=== PATIENT | female | born 1995 | race Caucasian/White ===

== ENCOUNTER 2019-01-18 20:14 | Emergency (ER) | payer OTHER ==
--- NOTE | 2019-01-18 21:57 | ER Document Report ---
ED Medical Screen (RME) - General Chief Complaint: Medication Refill Stated Complaint: MED REFILL Time Seen by Provider: 01/18/19 21:32 Notes: Patient is a 23-year-old female with a history of Asperger's, ADD, OCD and anxiety who presents to the emergency department with her family member with a chief complaint of anxiety. Family member states that she has been under a lot of stress as she is trying to obtain her green card. States that the patient is from [facility]. Patient does go to see [facility] for her mental health. He states that she has recently ran out of her for medications but he cannot remember the names of these medications. He states that the anxiety attacks have increased over the past 2 to 3 weeks and have been daily. Patient did have a recent medication change with the addition of Abilify a few weeks ago. Family member states she has been hitting her head on the wall multiple times per day during her anxiety attacks. Patient denies SI or HI. Patient is pacing back and forth in the triage room and appears anxious. TRAVEL OUTSIDE OF THE [place] IN LAST 30 DAYS: No - Related Data Allergies/Adverse Reactions: pineapple Allergy (Verified 01/18/19 21:30) Physical Exam - Vital signs Vitals: Temp Pulse Resp BP Pulse Ox 98.1 F 75 15 126/54 H 95 01/18/19 20:21 01/18/19 20:21 01/18/19 20:21 01/18/19 20:21 01/18/19 20:21 - Respiratory Respiratory status: No respiratory distress Chest status: Nontender Breath sounds: Normal Chest palpation: Normal Course - Re-evaluation Re-evalutation: 01/18/19 21:57 I have greeted and performed a rapid initial assessment of this patient. A comprehensive ED assessment and evaluation of the patient, analysis of test results and completion of the medical decision making process will be conducted by additional ED providers. - Vital Signs Vital signs: Temp Pulse Resp BP Pulse Ox 98.1 F 75 15 126/54 H 95 01/18/19 20:21 01/18/19 20:21 01/18/19 20:21 01/18/19 20:21 01/18/19 20:21
[2019-01-18 23:01] LABS: ABSOLUTE EOSINOPHILS # (AUTO) 0.2 10^3/uL (0.0-0.6); ABSOLUTE MONOCYTES (AUTO) 0.8 10^3/uL (0.1-1.4); ABSOLUTE NEUT (AUTO) 6.6 10^3/uL (1.7-8.2); BASOPHILS % (AUTO) 0.2 % (0-2); EOSINOPHILS % (AUTO) 1.4 % (0-6); HEMATOCRIT 40.7 % (36.0-47.0); HEMOGLOBIN 13.5 g/dL (12.0-15.5); LYMPHOCYTES % (AUTO) 28.3 % (13-45); MEAN CORPUSCULAR HEMOGLOBIN 25.6 pg (27.0-33.4); MEAN CORPUSCULAR HGB CONC 33.1 g/dL (32.0-36.0); MEAN CORPUSCULAR VOLUME 77 fl (80-97); MONOCYTES % (AUTO) 7.5 % (3-13); PLATELET COUNT 231 10^3/uL (150-450); RED BLOOD COUNT 5.25 10^6/uL (3.72-5.28); RED CELL DISTRIBUTION WIDTH 14.4 % (11.5-14.0); SEGMENTED NEUTROPHILS % (AUTO) 62.6 % (42-78); TOTAL CELLS COUNTED % (AUTO) 100 %; WHITE BLOOD COUNT 10.6 10^3/uL (4.0-10.5)
--- NOTE | 2019-01-18 23:12 | EKG REPORT ---
SEVERITY:- NORMAL ECG - SINUS RHYTHM : Confirmed by: Amparo Stevens MD 18-Jan-2019 23:12:11
[2019-01-18 23:20] LABS: ALBUMIN 4.2 g/dL (3.5-5.0); ALKALINE PHOSPHATASE 89 U/L (38-126); ANION GAP 8 (5-19); ASPARTATE AMINO TRANSFERASE 32 U/L (14-36); BILIRUBIN,DIRECT 0.2 mg/dL (0.0-0.4); BILIRUBIN,TOTAL 0.6 mg/dL (0.2-1.3); BLOOD UREA NITROGEN 14 mg/dL (7-20); CALCIUM 9.6 mg/dL (8.4-10.2); CARBON DIOXIDE 29 mmol/L (22-30); CHLORIDE 102 mmol/L (98-107); GLUCOSE 81 mg/dL (75-110); POTASSIUM 3.6 mmol/L (3.6-5.0)
[2019-01-18 23:21] LABS: ACETAMINOPHEN < 10 ug/mL (10-30); ALCOHOL < 10 mg/dL (NONE DETECTED); SALICYLATE < 1.0 mg/dL (2.0-20.0)
--- NOTE | 2019-01-18 23:47 | ER Document Report ---
ED General - General Chief Complaint: Medication Refill Stated Complaint: MED REFILL Time Seen by Provider: 01/18/19 21:32 Notes: 23-year-old female emergency department for evaluation of psychiatric issues. Patient reportedly has long-standing history of mental health disorders. Has been taking Celexa and Abilify. States that this is not helping. Her states that she has become more and more agitated at home. Hitting her head a gainst the wall on occasion. Followed by Dr. Duran with psychiatry. Patient states that she thinks she needs a sedative and that will make everything better. Patient has been admitted to psychiatric hospitals in [facility]. Patient is of [place] descent. Denies any suicidal ideation, homicidal ideation, hallucinations or other issues at this time. And also states that she might of stepped on a piece of glass and wants to look at the bottom of her right foot. TRAVEL OUTSIDE OF THE [place] IN LAST 30 DAYS: No - HPI Associated symptoms: None - Related Data Allergies/Adverse Reactions: pineapple Allergy (Verified 01/18/19 21:30) Past Medical History - General Information source: Patient - Social History Smoking Status: Never Smoker Frequency of alcohol use: Occasional Drug Abuse: None Lives with: Spouse/Significant other Family History: Reviewed & Not Pertinent Patient has suicidal ideation: No Patient has homicidal ideation: No Renal/ Medical History: Denies: Hx Peritoneal Dialysis Psychiatric Medical History: Reports: Hx Anxiety, Hx Bipolar Disorder Review of Systems - Review of Systems Notes: Constitutional: denies: Chills, Diaphoresis, Fever, Malaise, Weakness EENT: denies: Eye discharge, Blurred vision, Tearing, Double vision, Nose congestion, Nose discharge, Throat swelling, Mouth pain Cardiovascular: denies: Palpitations, Heart racing, Orthopnea, Dyspnea, Chest pain Respiratory: denies: Cough, Hurts to breathe, Wheezing, Shortness of breath Gastrointestinal: denies: Abdominal pain, Diarrhea, Nausea, Vomiting, Black stools, bright red blood in stool Genitourinary: denies: Burning, Dysuria, Discharge, Frequency, Flank pain, Hematuria Musculoskeletal: denies: Joint pain, Joint swelling, Muscle pain, Muscle stiffness, back pain Hematologic/Lymphatic: denies: Anemia, Easy bleeding, Easy bruising, Blood clots Neurological/Psychological: Agitation, irritation, anxiety Skin: No lesions, no masses, no skin breakdown, no abscesses Physical Exam - Vital signs Vitals: Temp Pulse Resp BP Pulse Ox 98.1 F 75 15 126/54 H 95 01/18/19 20:21 01/18/19 20:21 01/18/19 20:21 01/18/19 20:21 01/18/19 20:21 Interpretation: Normal - General General appearance: Appears well, Alert - HEENT Head: Normocephalic, Atraumatic Eyes: Normal Pupils: PERRL - Respiratory Respiratory status: No respiratory distress Chest status: Nontender Breath sounds: Normal Chest palpation: Normal - Cardiovascular Rhythm: Regular Heart sounds: Normal auscultation Murmur: No - Abdominal Inspection: Normal Distension: No distension Bowel sounds: Normal Tenderness: Nontender Organomegaly: No organomegaly - Back Back: Normal, Nontender - Extremities General upper extremity: Normal inspection, Nontender, Normal color, Normal ROM, Normal temperature General lower extremity: Normal inspection, Nontender, Normal color, Normal ROM, Normal temperature, Normal weight bearing. No: Norma's sign - Neurological Neuro grossly intact: Yes Cognition: Normal Orientation: AAOx4 Chelsey Coma Scale Eye Opening: Spontaneous Chelsey Coma Scale Verbal: Oriented Chelsey Coma Scale Motor: Obeys Commands Chelsey Coma Scale Total: 15 Speech: Normal Motor strength normal: LUE, RUE, LLE, RLE Sensory: Normal - Psychological Associated symptoms: Agitated, Other - Patient hit head against the wall a couple of times during the interview - Skin Skin Temperature: Warm Skin Moisture: Dry Skin Color: Normal Course - Re-evaluation Re-evalutation: 01/19/19 02:19 Laboratory 01/18/19 01/18/19 01/18/19 22:46 22:46 22:46 WBC 10.6 H RBC 5.25 Hgb 13.5 Hct 40.7 MCV 77 L MCH 25.6 L MCHC 33.1 RDW 14.4 H Plt Count 231 Seg Neutrophils % 62.6 Lymphocytes % 28.3 Monocytes % 7.5 Eosinophils % 1.4 Basophils % 0.2 Absolute Neutrophils 6.6 Absolute Lymphocytes 3.0 Absolute Monocytes 0.8 Absolute Eosinophils 0.2 Absolute Basophils 0.0 Sodium 138.8 Potassium 3.6 Chloride 102 Carbon Dioxide 29 Anion Gap 8 BUN 14 Creatinine 0.66 Est GFR ( Amer) > 60 Est GFR (Non-Af Amer) > 60 Glucose 81 Calcium 9.6 Total Bilirubin 0.6 Direct Bilirubin 0.2 Neonat Total Bilirubin Not Reportable Neonat Direct Bilirubin Not Reportable Neonat Indirect Bili Not Reportable AST 32 ALT 37 Alkaline Phosphatase 89 Total Protein 7.0 Albumin 4.2 Beta HCG, Quant < 2.39 Total Beta HCG NEGATIVE Salicylates < 1.0 L Acetaminophen < 10 L Serum Alcohol < 10 01/19/19 02:19 states that she really needs to be seen by mental health. He is a un comfortable taking her home. She seems to be resting comfortably now after getting some hydroxyzine and Xanax. I will have patient seen by mental health in the morning. - Vital Signs Vital signs: Temp Pulse Resp BP Pulse Ox 98.1 F 75 15 126/54 H 95 01/18/19 20:21 01/18/19 20:21 01/18/19 20:21 01/18/19 20:21 01/18/19 20:21 - Laboratory Result Diagrams: 01/18/19 22:46 01/18/19 22:46 Laboratory results interpreted by me: 01/18/19 01/18/19 22:46 22:46 WBC 10.6 H MCV 77 L MCH 25.6 L RDW 14.4 H Salicylates < 1.0 L Acetaminophen < 10 L Discharge - Discharge Clinical Impression: Behavioral change Condition: Good Disposition: HOME, SELF-CARE
[2019-01-18] MEDS ORDERED: ESCITALOPRAM OXALATE 10 MG TABLET PO ONE (23:53)
[2019-01-18] MEDS ORDERED: BENZTROPINE MESYLATE 1 MG TABLET PO ONE (23:54)
[2019-01-18] MEDS ORDERED: ARIPIPRAZOLE 5 MG TABLET PO ONE (23:54)
[2019-01-19] MEDS ORDERED: HYDROXYZINE HCL 10 MG TABLET PO ONE (00:03)
[2019-01-19] MEDS ORDERED: ALPRAZOLAM 0.25 MG TABLET PO ONE (00:04)
[2019-01-19 04:20] LABS: APPEARANCE,URINE SLIGHTLY-CLOUDY; BILIRUBIN,URINE NEGATIVE (NEGATIVE); COLOR,URINE YELLOW; GLUCOSE, URINE NEGATIVE (NEGATIVE); KETONES,URINE TRACE mg/dL (NEGATIVE); LEUKOCYTE ESTERASE,URINE NEGATIVE (NEGATIVE); NITRITE,URINE NEGATIVE (NEGATIVE); PROTEIN,URINE NEGATIVE (NEGATIVE); URINE SPECIFIC GRAVITY 1.013; UROBILINOGEN,URINE NEGATIVE mg/dL (<2.0)
[2019-01-19 04:38] LABS: URINE AMPHETAMINES SCREEN NEGATIVE; URINE BARBITURATES SCREEN NEGATIVE; URINE BENZODIAZEPINES SCREEN NEGATIVE; URINE COCAINE SCREEN NEGATIVE; URINE MARIJUANA (THC) SCREEN NEGATIVE; URINE METHADONE SCREEN NEGATIVE; URINE PHENCYCLIDINE SCREEN NEGATIVE
--- NOTE | 2019-01-19 11:42 | ER Document Report ---
Doctor's Note Notes: 01/19/19 11:42 Rounds: Chart reviewed and patient interviewed. Patient is here for evaluation related to behavioral issues. She also is out of medications and has been switched to medications that are not as helpful as her usual medicines. Vital signs are essentially normal. Lab studies were all normal. Patient appears to be medically stable for transfer or discharge. Sandra Mina MD
[2019-01-19] MEDS ORDERED: BUSPIRONE HCL 10 MG TABLET PO ONE (11:59)
[2019-01-19 12:10] VITALS: BP 122/64
== END 2019-01-19 12:18 | disposition home or self-care (01) ==
LOC: ER 20:14
DX: F32.9 Major depressive disorder, single episode, unspecified (principal); F41.9 Anxiety disorder, unspecified; Z79.899 Other long term (current) drug therapy; R45.1 Restlessness and agitation; Z91.018 Allergy to other foods
CPT/HCPCS: 36415; 80053; 80307; 81001; 84702; 85025; 93005; 93010; 99283

== ENCOUNTER 2019-01-23 12:58 | Emergency (ER) | payer OTHER ==
--- NOTE | 2019-01-23 13:16 | ER Document Report ---
HPI - HPI Patient complains to provider of: right foot pain Time Seen by Provider: 01/23/19 13:05 Onset: Last week Onset/Duration: Persistent Pain Level: 1 Context: This 23-year-old female presents from [place] with complaints of right foot pain. She reports that she stepped on glass approximately 1 week ago. She reports a glass was clear. Believes her tetanus is up-to-date. No other c omplaints such as fever and vomiting. Reports pain with movement walking touch. Patient also complains of right knee pain. Reports she injured her right knee at a different time approximately a week ago. Ecchymosis with healing scab noted to the right kneecap. Patient offered Motrin but declined. Associated Symptoms: None Exacerbated by: Movement, Walking Relieved by: Denies Similar symptoms previously: No Recently seen / treated by doctor: No - REPRODUCTIVE Reproductive: DENIES: : Past Medical History - General Information source: Patient - Social History Smoking Status: Unknown if Ever Smoked Cigarette use (# per day): No Frequency of alcohol use: None Drug Abuse: None Lives with: Other - ragini mohan Family History: Reviewed & Not Pertinent Patient has suicidal ideation: No Patient has homicidal ideation: No Renal/ Medical History: Denies: Hx Peritoneal Dialysis Psychiatric Medical History: Reports: Hx Anxiety, Hx Bipolar Disorder, Hx Schizophrenia Surgical Hx: Negative - Immunizations Immunizations up to date: Yes Vertical Provider Document - CONSTITUTIONAL Agree With Documented VS: Yes Exam Limitations: No Limitations General Appearance: WD/WN, No Apparent Distress - INFECTION CONTROL TRAVEL OUTSIDE OF THE [place] IN LAST 30 DAYS: No - HEENT HEENT: Atraumatic, Normocephalic - NECK Neck: Supple - RESPIRATORY Respiratory: No Respiratory Distress - CARDIOVASCULAR Cardiovascular: Regular Rate - MUSCULOSKELETAL/EXTREMETIES Musculoskeletal/Extremeties: MAEW, FROM, Tender - right plantar midsole of foot ttp, no warmth no pustule no erythema, good pedal pulse good cap refill right knee ttp, ecchymosis, healing wound noted, no erythema, no warmth. pt ambulating without problems - NEURO Level of Consciousness: Awake, Alert, Appropriate Motor/Sensory: No Motor Deficit - DERM Integumentary: Warm, Dry Adult Front & Back Diagram: 1 - right knee pain, ttp, +ecchymosis, healing wound noted, no drainage, no warmth, no erythema Course - Re-evaluation Re-evalutation: 01/23/19 14:37 This 23-year-old female presents emergency department with glass in her foot. She reports that happened over a week ago. Patient complains of pain. No erythema swelling or warmth around the area. Extremity Ultrasound 01/23/19 13:10 IMPRESSION: Foreign body compatible with the history of glass. Patient instructed on the results of the ultrasound. Instructed to follow-up with dye colorist formulator or surgeon for removal of glass. Monitor site for signs of infection such as redness swelling warmth take Motrin for the pain. - Vital Signs Vital signs: Temp Pulse Resp BP Pulse Ox 98.1 F 88 18 109/64 100 01/23/19 13:02 01/23/19 13:02 01/23/19 13:02 01/23/19 13:02 01/23/19 13:02 - Diagnostic Test Radiology reviewed: Image reviewed, Reports reviewed Discharge - Discharge Clinical Impression: Right foot pain, retained foreign body right foot Condition: Stable Disposition: HOME, SELF-CARE Instructions: Use of [id number] Ibuprofen ([facility]) Additional Instructions: *You have been treated for right foot pain, foreign body right foot *The Ultrasound did show a small piece of a foreign body in your foot *Monitor the site for signs of infection such as increasing pain, redness, swelling, warmth *keep your foot clean *Follow up with a dye colorist formulator or surgeon within one week for evaluation and removal of object as indicated *Return to ED for signs of infection, worsening condition, changes, needs [facility]errals: [facility] [Provider Group[facility] - [facility] - Follow up as needed
--- NOTE | 2019-01-23 14:25 | RADIOLOGY REPORT (SQ) ---
EXAM DESCRIPTION: U/S EXTREMITY NONVASCULAR LTD COMPLETED DATE/TIME: 01/23/2019 2:16 pm REASON FOR STUDY: right foot ? glass COMPARISON: None. TECHNIQUE: Dynamic and static grayscale images acquired of the localized site of clinical concern an d recorded on PACS. Additional selected color Doppler and spectral images recorded. SITE OF CONCERN: Right foot. LIMITATIONS: None. FINDINGS: SKIN AND SUBCUTANEOUS TISSUES: There is a small echogenic focus in the area of concern clement suring 1.2 x 1.3 x 1.1 mm. DEEP SOFT TISSUES/MUSCLES: No masses. No fluid collections. No edema. VASCULAR: No increased or decreased vascularity. No occlusions. OTHER: No other significant finding. IMPRESSION: Foreign body compatible with the history of glass. TECHNICAL DOCUMENTATION: JOB ID: [id number] [employer]- All Rights Reserved Reading location - IP/workstation name: [email or web address]
[2019-01-23 15:02] VITALS: BP 129/84
== END 2019-01-23 15:02 | disposition home or self-care (01) ==
LOC: ER 12:58
DX: M79.5 Residual foreign body in soft tissue (principal); M79.671 Pain in right foot; W25.XXXA Contact with sharp glass, initial encounter; S80.01XA Contusion of right knee, initial encounter; M25.561 Pain in right knee; X58.XXXA Exposure to other specified factors, initial encounter
CPT/HCPCS: 76882; 99283

== ENCOUNTER 2019-02-03 14:06 | Emergency (ER) | payer OTHER ==
--- NOTE | 2019-02-03 15:05 | ER Document Report ---
ED Medical Screen (RME) - General Chief Complaint: Abnormal Lab Results Stated Complaint: ABNORMAL LABS Time Seen by Provider: 02/03/19 14:53 Notes: Patient is a 23-year-old female with a history of Asperger's, ADD, OCD and anxiety presents to the emergency department with a chief complaint of abnormal labs. Patient's brother states he was picking her up from [place] today and was told that she had an elevated potassium level. They were told to come to the emergency department. Patient was recently started on lithium within the past week and restarted on Zyprexa 2 weeks ago. Patient has no complaints. Patient denies chest pain, palpitations, shortness of breath, nausea, vomiting or diarrhea. TRAVEL OUTSIDE OF THE [place] IN LAST 30 DAYS: No - Related Data Allergies/Adverse Reactions: pineapple Allergy (Verified 01/23/19 13:02) Past Medical History - Social History Chew tobacco use (# tins/day): No Frequency of alcohol use: Social Drug Abuse: None Renal/ Medical History: Denies: Hx Peritoneal Dialysis Psychiatric Medical History: Reports: Hx Anxiety, Hx Bipolar Disorder, Hx Schizophrenia - Immunizations Immunizations up to date: Yes Physical Exam - Vital signs Vitals: Temp Pulse Resp BP Pulse Ox 98.3 F 84 16 114/67 96 02/03/19 14:15 02/03/19 14:15 02/03/19 14:15 02/03/19 14:15 02/03/19 14:15 - Cardiovascular Rhythm: Regular Heart sounds: Normal auscultation, S1 appreciated, S2 appreciated Course - Re-evaluation Re-evalutation: 02/03/19 15:04 I have greeted and performed a rapid initial assessment of this patient. A comprehensive ED assessment and evaluation of the patient, analysis of test results and completion of the medical decision making process will be conducted by additional ED providers. - Vital Signs Vital signs: Temp Pulse Resp BP Pulse Ox 98.3 F 84 16 114/67 96 02/03/19 14:15 02/03/19 14:15 02/03/19 14:15 02/03/19 14:15 02/03/19 14:15
[2019-02-03 15:56] LABS: ABSOLUTE EOSINOPHILS # (AUTO) 0.3 10^3/uL (0.0-0.6); ABSOLUTE LYMPHOCYTES (AUTO) 2.7 10^3/uL (0.5-4.7); ABSOLUTE MONOCYTES (AUTO) 0.9 10^3/uL (0.1-1.4); ABSOLUTE NEUT (AUTO) 9.6 10^3/uL (1.7-8.2); BASOPHILS % (AUTO) 0.1 % (0-2); EOSINOPHILS % (AUTO) 2.3 % (0-6); HEMATOCRIT 40.1 % (36.0-47.0); LYMPHOCYTES % (AUTO) 19.6 % (13-45); MEAN CORPUSCULAR HEMOGLOBIN 25.2 pg (27.0-33.4); MEAN CORPUSCULAR HGB CONC 32.5 g/dL (32.0-36.0); MEAN CORPUSCULAR VOLUME 78 fl (80-97); PLATELET COUNT 285 10^3/uL (150-450); RED BLOOD COUNT 5.17 10^6/uL (3.72-5.28); RED CELL DISTRIBUTION WIDTH 14.5 % (11.5-14.0); TOTAL CELLS COUNTED % (AUTO) 100 %; WHITE BLOOD COUNT 13.6 10^3/uL (4.0-10.5)
[2019-02-03 16:03] LABS: ALBUMIN 4.2 g/dL (3.5-5.0); ALKALINE PHOSPHATASE 110 U/L (38-126); ANION GAP 10 (5-19); ASPARTATE AMINO TRANSFERASE 67 U/L (14-36); BILIRUBIN,DIRECT 0.2 mg/dL (0.0-0.4); BILIRUBIN,TOTAL 0.3 mg/dL (0.2-1.3); BLOOD UREA NITROGEN 14 mg/dL (7-20); CALCIUM 9.3 mg/dL (8.4-10.2); CARBON DIOXIDE 28 mmol/L (22-30); CHLORIDE 100 mmol/L (98-107); GLUCOSE 83 mg/dL (75-110); POTASSIUM 4.4 mmol/L (3.6-5.0); TOTAL PROTEIN 7.2 g/dL (6.3-8.2)
--- NOTE | 2019-02-03 16:29 | ER Document Report ---
ED General - General Chief Complaint: Abnormal Lab Results Stated Complaint: ABNORMAL LABS Time Seen by Provider: 02/03/19 14:53 TRAVEL OUTSIDE OF THE [place].S[place] IN LAST 30 DAYS: No - HPI Notes: Patient is a 23-year-old female with an extensive mental health history who presents to the emergency department for evaluation of abnormal labs. Brother is picking her up from [place]. They were told at that time that she had an elevated potassium. The patient denies any weakness. No palpitations. No dizziness. She is not on any potassium supplements. She just started on lithium. - Related Data Allergies/Adverse Reactions: pineapple Allergy (Verified 01/23/19 13:02) Past Medical History - General Information source: Patient, Relative - Social History Smoking Status: Never Smoker Chew tobacco use (# tins/day): No Frequency of alcohol use: Social Drug Abuse: None Family History: Reviewed & Not Pertinent Patient has suicidal ideation: No Patient has homicidal ideation: No Renal/ Medical History: Denies: Hx Peritoneal Dialysis Psychiatric Medical History: Reports: Hx Anxiety, Hx Bipolar Disorder, Hx Schizophrenia - Immunizations Immunizations up to date: Yes Review of Systems - Review of Systems Constitutional: No symptoms reported EENT: No symptoms reported Cardiovascular: No symptoms reported Respiratory: No symptoms reported Gastrointestinal: No symptoms reported Genitourinary: No symptoms reported Musculoskeletal: No symptoms reported Skin: No symptoms reported Neurological/Psychological: No symptoms reported Physical Exam - Vital signs Vitals: Temp Pulse Resp BP Pulse Ox 98.3 F 84 16 114/67 96 02/03/19 14:15 02/03/19 14:15 02/03/19 14:15 02/03/19 14:15 02/03/19 14:15 - Notes Notes: This is a 23-year-old female appears stated age in no acute distress. She has diminished eye contact and a very flat affect, but is calm and cooperative with examiner. Vital signs reviewed, please refer to chart. Head is normocephalic, atraumatic. Pupils equal round, reactive to light. Neck is supple without meningismus. Heart is regular rate and rhythm. Lungs are clear to auscultation bilaterally. Abdomen is soft, nontender, normoactive bowel sounds throughout. Extremities without cyanosis, clubbing. Posterior calves are nontender. Peripheral pulses are equal. Skin is warm and dry. Patient is awake, alert, neurological exam is nonfocal. Course - Re-evaluation Re-evalutation: 02/03/19 16:27 Laboratory investigations were obtained on this patient who had reportedly elevated . Her potassium here was normal. Patient and brother were reassured. At this point she has no EKG abnormalities or other concerns. Again discharge at home. She is to continue her medications, follow-up with primary care, return to the ED with worsening or concerning symptoms of any sort. - Vital Signs Vital signs: Temp Pulse Resp BP Pulse Ox 98.3 F 84 16 114/67 96 02/03/19 14:15 02/03/19 14:15 02/03/19 14:15 02/03/19 14:15 02/03/19 14:15 - Laboratory Result Diagrams: 02/03/19 15:21 02/03/19 15:21 Laboratory results interpreted by me: 02/03/19 02/03/19 15:21 15:21 WBC 13.6 H MCV 78 L MCH 25.2 L RDW 14.5 H Absolute Neutrophils 9.6 H AST 67 H - EKG Interpretation by Me Additional EKG results interpreted by me: 02/03/19 16:29 Sinus mechanism with a rate of 76 bpm. Normal axis and intervals, no acute ST changes concerning for ischemia or infarction Discharge - Discharge Clinical Impression: Hyperkalemia, ruled out Condition: Stable Disposition: HOME, SELF-CARE Additional Instructions: Labs drawn today revealed there was in fact no elevated potassium. Continue y our home medications as prescribed. Follow-up with primary care this week. Return to the emergency department with worsening or new concerning symptoms of any sort.
[2019-02-03 16:39] VITALS: BP 104/66
--- NOTE | 2019-02-03 19:59 | EKG REPORT ---
SEVERITY:- NORMAL ECG - SINUS RHYTHM : Confirmed by: Amparo Stevens MD 03-Feb-2019 19:58:39
== END 2019-02-03 16:39 | disposition home or self-care (01) ==
LOC: ER 14:06
DX: Z71.1 Person with feared health complaint in whom no diagnosis is made (principal); F31.9 Bipolar disorder, unspecified
CPT/HCPCS: 36415; 80053; 83735; 85025; 93005; 93010; 99285

== ENCOUNTER 2020-04-04 15:04 | Emergency (ER) | payer OTHER ==
[2020-04-04 15:22] VITALS: BP 116/82
[2020-04-04] MEDS ORDERED: ACETAMINOPHEN 325 MG TABLET PO ONE (15:59)
--- NOTE | 2020-04-04 16:00 | ER Document Report ---
ED Extremity Problem, Lower - General Chief Complaint: Fall Injury Stated Complaint: FALL / FOOT PAIN Time Seen by Provider: 04/04/20 15:53 Primary Care Provider: KARTHIKEYAN HENRY DO [ACTIVE STAFF] - Follow up tomorrow Mode of Arrival: Wheelchair Information source: Patient, Relative Notes: 24-year-old female presented to ED for complaint of pain to her foot. She stat es this morning she fell asleep on the couch and when she woke up her foot was numb and asleep. She states she went to stand up and fell. She states this happened about 730 this morning. She states that she took ibuprofen 800 mg at 8:00 and 12:00. She states the pain was a level 2 at the time of exam. Foot was very swollen and tender to palpation. She does have a history of anxiety autism. Constitutional: Negative for fever. HENT: Negative for sore throat. Eyes: Negative for visual changes. Cardiovascular: Negative for chest pain. Respiratory: Negative for shortness of breath. Gastrointestinal: Negative for abdominal pain, vomiting or diarrhea. Genitourinary: Negative for dysuria. Musculoskeletal: Pain and swelling to right foot after falling this morning. States it is extremely painful to bear weight. States she has some numbness to her foot also Skin: Negative for rash. Neurological: Negative for headaches, weakness or numbness. 10 point ROS negative except as marked above and in HPI. VITAL SIGNS: Within normal limits. GENERAL: No acute distress, non-toxic appearance. HEAD: Normal with no signs of head trauma. EYES: PERRLA, EOMI, conjunctiva normal, no discharge. EARS: Hearing grossly intact. NOSE: Normal. THROAT: Oropharynx is normal. NECK: Normal range of motion, no tenderness, supple, no lymphadenopathy, No adenopathy, no JVD. CHEST: Clear breath sounds bilaterally. No wheezes, rales, or rhonchi. CARDIAC: Regular rate and rhythm. S1 and S2, without murmurs, gallops, or rubs. VASCULAR: No Edema. Peripheral pulses normal and equal in all extremities. ABDOMEN: Normal and soft with no tenderness, no masses or pulsatile masses. GASTROINTESTINAL: Bowel sounds normal GENITOURINARY: Normal, No tenderness LYMPATHTIC: No lymphadenopathy noted. MUSCULOSKELETAL: Edema ecchymosis and pain to the right top of the foot. NEUROLOGICAL: Alert and oriented x 3. No focal sensory or strength deficits. Speech normal. Follows commands appropriately. PSYCHIATRIC: Normal Affect, judgement and mood. SKIN: Ecchymosis swelling to the top of the right foot TRAVEL OUTSIDE OF THE [place] IN LAST 30 DAYS: No - HPI Patient complains to provider of: Injury, Pain, Swelling Location: Foot Occurred: This morning Where: Home, Indoors Onset/Duration: Sudden, Persistent, Better Quality of pain: Achy Severity: Moderate Pain Level: 2 Context: Fell Recent injury: Yes Associated symptoms: Painful ambulation Exacerbated by: Hanging down, Movement, Walking Relieved by: Elevation, Ice, Rest - Related Data Allergies/Adverse Reactions: pineapple Allergy (Verified 01/23/19 13:02) Past Medical History - General Information source: Patient - Social History Smoking Status: Never Smoker Frequency of alcohol use: None Drug Abuse: None Lives with: Family Family History: Reviewed & Not Pertinent Patient has suicidal ideation: No Patient has homicidal ideation: No - Past Medical History Cardiac Medical History: Reports: None Pulmonary Medical History: Reports: None EENT Medical History: Reports: None Neurological Medical History: Reports: None Endocrine Medical History: Reports: None Renal/ Medical History: Reports: None Malignancy Medical History: Reports: None GI Medical History: Reports: None Musculoskeletal Medical History: Reports Hx Musculoskeletal Trauma Skin Medical History: Reports None Psychiatric Medical History: Reports: Hx Anxiety, Hx Bipolar Disorder, Hx Schizophrenia, Other - Autism Traumatic Medical History: Reports: Hx Fractures Infectious Medical History: Reports: None Surgical Hx: Negative Past Surgical History: Reports: None - Immunizations Immunizations up to date: Yes Physical Exam - Vital signs Vitals: Temp Pulse Resp BP Pulse Ox 98.3 F 94 16 116/82 98 04/04/20 15:22 04/04/20 15:22 04/04/20 15:22 04/04/20 15:22 04/04/20 15:22 Course - Re-evaluation Re-evalutation: 04/04/20 17:03 Displaced transversely oriented fracture of the base of the fifth metatarsal on the right foot. Patient has been instructed on elevation ice no weightbearing in his posterior ankle splint has been placed. Patient has been instructed to call orthopedics today or in the morning to get a follow-up appointment as soon as possible. Patient and both verbalized understanding and agreement with treatment plan. - Vital Signs Vital signs: Temp Pulse Resp BP Pulse Ox 98.3 F 94 16 116/82 98 04/04/20 15:22 04/04/20 15:22 04/04/20 15:22 04/04/20 15:22 04/04/20 15:22 - Diagnostic Test Radiology reviewed: Image reviewed, Reports reviewed Procedures - Immobilization Right Foot Time completed: 17:03 Immobilizer type: Posterior ankle Performed by: PCT Post-Proc Neuro Vasc Exam: Normal Alignment checked and good: Yes Discharge - Discharge Clinical Impression: Nondisplaced fracture of fifth right metatarsal bone Qualifiers: Encounter type: initial encounter Fracture type: closed Qualified Code(s): S92.354A - Nondisplaced fracture of fifth metatarsal bone, right foot, initial encounter for closed fracture Condition: Stable Disposition: HOME, SELF-CARE Additional Instructions: Foot Fracture You have a fracture in one of the small bones of the foot. Some foot fractures are very serious, while others are no more serious than a sprain. This fracture should heal well, but requires protection for proper healing. Initially, you should elevate and ice pack the foot, and bear no weight on it. Usually, a cast or a walking boot will be required. Some milder foot fractures can be managed with temporary rest, then a firm shoe. Your physician has determined the seriousness of your foot fracture and has outlined the treatment plan for you. You should follow up as instructed to insure that the fracture heals without complications. Call the doctor or return at once if pain or swelling becomes severe, if a re-injury occurs, or if any part of the foot becomes numb. Splint Pending Casting Your injury can't be casted until the swelling has subsided. Therefore, a temporary splint has been placed to protect the injury. Full use of an injured area is not possible in a splint. You should follow the doctor's instructions concerning rest, ice, and elevation of the injury. Never do anything which causes pain under the splint. Keep the splint on ALL THE TIME until you return for casting. If there is unexpected severe pain, or numbness, discoloration, or swelling beyond the splint, you should return at once. USE OF CRUTCHES: The doctor has recommended that you not bear weight at this time. You will need to use crutches. Adjust the crutches so the tops come to about two inches under the armpit while you are standing upright. Use your hands -- not your armpits -- to support your weight. To get into a chair, support yourself with one crutch on the injured side. Hold the chair with the other hand, then lower yourself while putting all your weight on the good leg. Going up stairs is `good leg up, step up, then bring up crutches and bad leg.' Down stairs is `bad leg and crutches down, then bring good leg down.' If you develop numbness or swelling in an arm or hand, you are using the crutches incorrectly. Return if you are having any problems with the crutches. Do not bear any weight on this foot until you follow-up with orthopedics and they give you further instructions. It is very important that you call orthopedics right away and schedule follow-up. ICE & ELEVATION: Apply ice packs frequently against the painful area. Many different schedules are recommended, such as "20 minutes on, 20 minutes off" or "one hour ice, two hours rest." If you need to work, you may need to go longer between ice treatments. You should plan to have the area ice packed AT LEAST one-fourth of the time. The ice should be applied over the wrap, tape, or splint, or over a layer of cloth -- not directly against the skin. Some ice bags have a built-in cloth and can be put directly on the skin. Your injured part should be elevated as much as possible over the next 48 hours. Try to keep the injury above the level of the heart. Avoid use of the injured area. Elevation and rest will decrease the swelling. USE OF OKSK-PRQ-TSZURGL IBUPROFEN: Ibuprofen (Advil, Nuprin, Medipren, Motrin IB) is a medication for fever and pain control. In addition, it has anti- inflammatory effects which may be beneficial, especially in the treatment of injuries. It's best to take ibuprofen with food. Persons with ulcer disease or allergy to aspirin should notify their physician of this before taking ibuprofen. Ibuprofen can be given every four to six hours, for a total of four doses daily. Age Pain or fever dose Antiinflammatory dose 6-8 yr 200 mg (1 tab) 200 mg (1 tab) 9-11 yr 200 mg (1 tab) 200-400 mg (1-2 tab) 11-14 yr 200-400 mg (1-2 tab) 400 mg (2 tab) 15-adult 400 mg (2 tab) 600 mg (3 tab) ORAL NARCOTIC MEDICATION: You have been given a [place] dispense pack for pain control. This medication is a narcotic. It's best taken with food, as nausea can result if taken on an empty stomach. Don't operate machinery or drive within six hours of taking this medication. Do not combine this medicine with alcohol, or with any medication which can cause sedation (such as cold tablets or sleeping pills) unless you get permission from the physician. Narcotics tend to cause constipation. If possible, drink plenty of fluids and eat a diet high in fiber and fruits. Please be aware that prescription narcotics also have the potential for abuse. People become addicted to these medications because of the general sense of wellbeing that they induce. This feeling along with a significant reduction in tension, anxiety, and aggression provides a stimulating seductive quality to these drugs. Once your pain is under control, we encourage you to discard your unused narcotics. FOLLOW-UP CARE: If you have been referred to a physician for follow-up care, call the physicians office for an appointment as you were instructed or within the next two days. If you experience worsening or a significant change in your symptoms, notify the physician immediately or return to the Emergency Department at any time for re-evaluation. Referrals: KARTHIKEYAN HENRY DO [ACTIVE STAFF] - Follow up tomorrow
--- NOTE | 2020-04-04 16:25 | RADIOLOGY REPORT (SQ) ---
EXAM DESCRIPTION: FOOT RIGHT COMPLETE IMAGES COMPLETED DATE/TIME: 04/04/2020 4:14 pm REASON FOR STUDY: pain fall injury COMPARISON: None. NUMBER OF VIEWS: Three views. TECHNIQUE: AP, lateral and oblique radiographic images acquired of the right foot. LIMITATIONS: None. FINDINGS: MINERALIZATION: Normal. BONES: Displaced comminuted transversely oriented fracture at the base of the 5th metatarsal. Mild l ateral displacement of the proximal fracture fragment. No additional fractures identified. JOINTS: No effusions. SOFT TISSUES: Soft tissue swelling about the foot. No radiopaque foreign body. OTHER: No other significant finding. IMPRESSION: Displaced transversely oriented fracture of the base of the 5th metatarsal. TECHNICAL DOCUMENTATION: JOB ID: [id number] [employer]- All Rights Reserved Reading location - IP/workstation name: [email or web address]
[2020-04-04] MEDS ORDERED: HYDROCODONE/ACETAMINOPHEN 5-325 MG (6 TAB/ER DISP) PO PRN (16:54)
== END 2020-04-04 17:25 | disposition home or self-care (01) ==
LOC: ER 15:04
PROC: 2W3QX1Z Immobilization of Right Lower Leg using Splint (ICD-10-PCS; principal; 2020-04-04)
DX: S92.354A Nondisplaced fracture of fifth metatarsal bone, right foot, initial encounter for closed fracture (principal); M79.89 Other specified soft tissue disorders; M79.671 Pain in right foot; R20.0 Anesthesia of skin; W19.XXXA Unspecified fall, initial encounter; Z79.899 Other long term (current) drug therapy; F41.9 Anxiety disorder, unspecified; F84.0 Autistic disorder
CPT/HCPCS: 99284

== ENCOUNTER 2020-06-22 10:50 | Emergency (ER) | payer OTHER ==
[2020-06-22] MEDS ORDERED: ACETAMINOPHEN 325 MG TABLET PO ONE (12:03)
--- NOTE | 2020-06-22 12:04 | ER Document Report ---
ED Medical Screen (RME) - General Chief Complaint: Abdominal Pain Stated Complaint: ABDOMINAL CRAMPING Time Seen by Provider: 06/22/20 11:59 Mode of Arrival: Ambulatory Information source: Patient Notes: HPI; 24-year-old female 1 states she is approximately 4 weeks presents to the emergency room complaining of worsening pelvic cramping that started yesterday. Denies any nausea, vomiting, no OB care. Positive home test on June 17. Denies any vaginal bleeding or discharge. PE: Alert and oriented x3. Lungs: Clear to auscultation without rales, rhonchi, wheezes. Heart: Regular rate rhythm without murmurs, rubs, gallops. I have greeted and performed a rapid initial assessment of this patient. A comprehensive ED assessment and evaluation of the patient, analysis of test results and completion of the medical decision making process will be conducted by additional ED providers. I have specifically instructed the patient or family members with the patient to immediately return to any nursing staff should anything change in the patient's condition or with their chief complaint. TRAVEL OUTSIDE OF THE [place] IN LAST 30 DAYS: No - Related Data Allergies/Adverse Reactions: pineapple Allergy (Verified 06/22/20 11:59) Past Medical History Renal/ Medical History: Denies: Hx Peritoneal Dialysis Musculoskeltal Medical History: Reports Hx Musculoskeletal Trauma Psychiatric Medical History: Reports: Hx Anxiety, Hx Bipolar Disorder, Hx Schizophrenia Traumatic Medical History: Reports: Hx Fractures - Immunizations Immunizations up to date: Yes Physical Exam - Vital signs Vitals: Temp Pulse Resp BP Pulse Ox 98.2 F 85 16 133/76 H 100 06/22/20 11:02 06/22/20 11:02 06/22/20 11:02 06/22/20 11:02 06/22/20 11:02 Course - Vital Signs Vital signs: Temp Pulse Resp BP Pulse Ox 98.2 F 85 16 133/76 H 100 06/22/20 11:02 06/22/20 11:02 06/22/20 11:02 06/22/20 11:02 06/22/20 11:02
[2020-06-22 12:50] LABS: ABSOLUTE EOSINOPHILS # (AUTO) 0.1 10^3/uL (0.0-0.6); ABSOLUTE LYMPHOCYTES (AUTO) 2.6 10^3/uL (0.5-4.7); ABSOLUTE MONOCYTES (AUTO) 0.6 10^3/uL (0.1-1.4); ABSOLUTE NEUT (AUTO) 7.7 10^3/uL (1.7-8.2); BASOPHILS % (AUTO) 0.3 % (0-2); EOSINOPHILS % (AUTO) 1.1 % (0-6); HEMATOCRIT 42.6 % (36.0-47.0); HEMOGLOBIN 14.3 g/dL (12.0-15.5); LYMPHOCYTES % (AUTO) 23.8 % (13-45); MEAN CORPUSCULAR HEMOGLOBIN 25.7 pg (27.0-33.4); MEAN CORPUSCULAR HGB CONC 33.6 g/dL (32.0-36.0); MEAN CORPUSCULAR VOLUME 76 fl (80-97); MONOCYTES % (AUTO) 5.1 % (3-13); PLATELET COUNT 260 10^3/uL (150-450); RED BLOOD COUNT 5.58 10^6/uL (3.72-5.28); RED CELL DISTRIBUTION WIDTH 15.8 % (11.5-14.0); SEGMENTED NEUTROPHILS % (AUTO) 69.7 % (42-78); TOTAL CELLS COUNTED % (AUTO) 100 %
[2020-06-22 12:57] LABS: APPEARANCE,URINE CLEAR; BILIRUBIN,URINE NEGATIVE (NEGATIVE); COLOR,URINE YELLOW; GLUCOSE, URINE NEGATIVE (NEGATIVE); KETONES,URINE 20 mg/dL (NEGATIVE); LEUKOCYTE ESTERASE,URINE NEGATIVE (NEGATIVE); NITRITE,URINE NEGATIVE (NEGATIVE); PROTEIN,URINE NEGATIVE (NEGATIVE); URINE SPECIFIC GRAVITY 1.009; UROBILINOGEN,URINE NEGATIVE mg/dL (<2.0)
[2020-06-22 13:13] LABS: ALBUMIN 4.3 g/dL (3.5-5.0); ALKALINE PHOSPHATASE 98 U/L (38-126); ANION GAP 8 (5-19); ASPARTATE AMINO TRANSFERASE 48 U/L (14-36); BILIRUBIN,DIRECT 0.2 mg/dL (0.0-0.4); BILIRUBIN,TOTAL 0.6 mg/dL (0.2-1.3); BLOOD UREA NITROGEN 9 mg/dL (7-20); CALCIUM 9.5 mg/dL (8.4-10.2); CARBON DIOXIDE 28 mmol/L (22-30); CHLORIDE 102 mmol/L (98-107); GLUCOSE 84 mg/dL (75-110); POTASSIUM 4.2 mmol/L (3.6-5.0); TOTAL PROTEIN 7.4 g/dL (6.3-8.2)
--- NOTE | 2020-06-22 14:10 | RADIOLOGY REPORT (SQ) ---
EXAM DESCRIPTION: U/S OB TRANSVAG W/DOPPLER IMAGES COMPLETED DATE/TIME: 06/22/2020 1:12 pm REASON FOR STUDY: pelvic pain COMPARISON: None. TECHNIQUE: Transvaginal static and realtime grayscale images acquired of the pelvis. Additional ariel cted spectral and color Doppler images recorded. All images stored on PACs. CLINICAL AGE: 5 week 0 day. BHCG: Not available. LIMITATIONS: None. FINDINGS: UTERUS: No visualized intrauterine . RIGHT ADNEXA: Normal ovary with normal vascular flow. No adnexal free fluid. Ovarian cysts measuring 2.1 cm and 2.6 cm. LEFT ADNEXA: Ovary not identified due to poor acoustical window. No adnexal free fluid. No adnexal masses. FREE FLUID: None. OTHER: No other significant finding. IMPRESSION: NO VISUALIZED INTRA- OR EXTRAUTERINE . bHCG LEVEL NOT AVAILABLE FOR CORRELATION WITH US FINDINGS. ECTOPIC CANNOT BE EXCLUDED. FOLLOW-UP ULTRASOUND AND SERIAL BHCG LEVELS STRONGLY RECOMMENDED TO ACCURATELY ASSESS STATU S. TECHNICAL DOCUMENTATION: JOB ID: [id number] 2010 [employer]- All Rights Reserved Reading location - IP/workstation name: [email or web address]
--- NOTE | 2020-06-22 16:40 | ER Document Report ---
ED GI/ - General Chief Complaint: Abdominal Pain Stated Complaint: ABDOMINAL CRAMPING Time Seen by Provider: 06/22/20 11:59 Primary Care Provider: JOVANNI MARTINEZ MD [ACTIVE PROVISIONAL STAFF] - Follow up as needed Mode of Arrival: Ambulatory Information source: Patient TRAVEL OUTSIDE OF THE [place] IN LAST 30 DAYS: No - HPI Patient complains to provider of: Abdominal pain, Notes: 06/22/20 16:42 Patient here with complaints of being and having some abdominal cramping yesterday. Patient states she is approximately 4 weeks . The last normal menstrual cycle was on May 20. She states that yesterday she was having some left lower pelvic cramping but denies any cramping or pain today. She has taken multiple tests at home that were positive. She denies fevers. She denies nausea, vomiting, diarrhea. No dysuria or hematuria. No vaginal bleeding or vaginal discharge. No rash. No chest pain or shortness of breath. Nothing seemed to make the pain better or worse. Again currently she denies any pain at this time. Biggest concern is she wanted to make sure that everything was okay with her . She states she has an appointment with MACHINE PRINTER coming up on Saturday. She denies any other specific complaints at this time. - Related Data Allergies/Adverse Reactions: pineapple Allergy (Verified 06/22/20 11:59) Past Medical History - General Information source: Patient - Social History Smoking Status: Never Smoker Frequency of alcohol use: None Drug Abuse: None Family History: Reviewed & Not Pertinent Patient has homicidal ideation: No Renal/ Medical History: Denies: Hx Peritoneal Dialysis Musculoskeletal Medical History: Reports Hx Musculoskeletal Trauma Psychiatric Medical History: Reports: Hx Anxiety, Hx Bipolar Disorder, Hx Schizophrenia Traumatic Medical History: Reports: Hx Fractures - Immunizations Immunizations up to date: Yes Review of Systems - Review of Systems -: Yes All other systems reviewed and negative Physical Exam - Vital signs Vitals: Temp Pulse Resp BP Pulse Ox 98.2 F 85 16 133/76 H 100 06/22/20 11:02 06/22/20 11:02 06/22/20 11:02 06/22/20 11:02 06/22/20 11:02 - Notes Notes: GENERAL: alert, cooperative, nontoxic, no distress. HEAD: normocephalic, atraumatic EYES: conjunctiva pink without discharge, no external redness or swelling. EARS: no external swelling, no external redness NOSE: atraumatic, no external swelling MOUTH/THROAT: mucous membranes moist and pink, posterior pharynx without erythema, swelling, exudate. No trismus or drooling. NECK: soft, supple, full range of motion, no meningismus. CHEST: no distress, lungs clear and equal throughout. No wheezing, rales, rhonchi. CARDIAC: regular rate and rhythm, no murmur ABDOMEN: Soft, nontender to palpation. No rebound tenderness or guarding. No pelvic tenderness. No mass. BACK: full range of motion. No CVA tenderness. EXTREMITIES: full range of motion of all extremities. No redness, no swelling. NEURO: alert and oriented x 3, no focal deficits, full range of motion of all extremities. PYSCH: appropriate mood, affect. Patient is cooperative. SKIN: pink, warm, dry, no rash. Course - Re-evaluation Re-evalutation: 06/22/20 16:47 Patient is resting comfortably at this time. I have gone over the results with the patient and her partner. Questions have been answered. We will discharge home. Patient is nontoxic-appearing with stable vitals. She arrives with complaints of some left-sided pelvic cramping yesterday. She denies any cramping or pain today. She has no abdominal tenderness on exam. She states that she is taken several tests at home in order to be sure that everything was okay with her baby. Exam today shows no abdominal tenderness. White count is 11. Hemoglobin is 14. Chemistries are unremarkable aside from a slight elevation in AST and ALT of 48 and 71 respectively. This is stable when compared to previous labs. She is positive and her beta hCG is 661. Urinalysis shows 20 ketones with no signs of infection. Transvaginal ultrasound shows no visualized intra or extrauterine . Ectopic cannot be excluded. This point the patient is very early in . Is not uncommon to not be able to visualize anything on the ultrasound at this time. I did express the importance of follow-up for repeat blood work and ultrasound to completely rule out ectopic or miscarriage. Overall the patient has no discharge, bleeding or pain at this time. Patient has an appointment with her MACHINE PRINTER sched ingrid for Saturday. She was instructed to keep this appointment. She was also given referral to an MACHINE PRINTER here if she is unable to see her doctor. She was strongly encouraged to return the emergency department she develops any worsening pain, high fever, persistent vomiting, heavy vaginal bleeding, or for any further concerns. The patient's emergency department workup and current diagnosis were explained to the patient and or family. Follow-up instructions were provided. Medications if prescribed were discussed. Instructions for when to return to the emergency department including specific worrisome symptoms were discussed with the patient and/or family. - Vital Signs Vital signs: Temp Pulse Resp BP Pulse Ox 98.2 F 85 16 133/76 H 100 06/22/20 11:02 06/22/20 11:02 06/22/20 11:02 06/22/20 11:02 06/22/20 11:02 - Laboratory Results Result Diagrams: 06/22/20 12:25 06/22/20 12:25 Laboratory Results Interpreted: 06/22/20 06/22/20 06/22/20 12:25 12:25 12:25 WBC 11.0 H RBC 5.58 H MCV 76 L MCH 25.7 L RDW 15.8 H Creatinine 0.49 L AST 48 H ALT 71 H Beta HCG, Quant 661.56 H Urine Ketones 20 H Critical Laboratory Results Reviewed: No Critical Results - Radiology Results Critical Radiology Results Reviewed: No Critical Results Discharge - Discharge Clinical Impression: Abdominal cramping affecting Qualifiers: Weeks of gestation: less than 8 weeks Qualified Code(s): Z3A.01 - Less than 8 weeks gestation of Condition: Stable Disposition: HOME, SELF-CARE Instructions: Pelvic Pain in ([facility]), ([facility]) Additional Instructions: You may take Tylenol as needed for pain. Take vitamins. Follow-up with your MACHINE PRINTER as scheduled for repeat hormone level. Today her level was 667. Follow-up sooner for severe pain, high fever, persistent vomiting, heavy bleeding, or for any further concerns. Prescriptions: Pnv No.95/Ferrous Fum/Folic AC [ Cap[place]] 1 each PO DAILY 30 Days tablet Referrals: JOVANNI MARTINEZ MD [ACTIVE PROVISIONAL STAFF] - Follow up as needed
[2020-06-22 17:06] VITALS: BP 126/88
== END 2020-06-22 17:05 | disposition home or self-care (01) ==
LOC: ER 10:50
DX: O26.91 Pregnancy related conditions, unspecified, first trimester (principal); R10.32 Left lower quadrant pain; R10.2 Pelvic and perineal pain; Z3A.01 Less than 8 weeks gestation of pregnancy
CPT/HCPCS: 36415; 76817; 80053; 81001; 84702; 85025; 93976; 99284